=== PATIENT | male | born 1955 | race Caucasian/White ===

== ENCOUNTER 2018-07-20 13:11 | Emergency (ER) | payer OTHER ==
[~2018-07-20] VITALS: Ht 180.3 cm; Wt 72.6 kg
[2018-07-20 13:57] LABS: BASO # 0.1 10*3/uL (0.0-0.1); BASO % 0.8 % (0.0-1.0); EOS % 0.3 % (1.0-4.0); HEMATOCRIT 49.4 % (42.0-52.0); HEMOGLOBIN 17.4 g/dl (14.0-18.0); LYMPH # 0.9 10*3/uL (1.3-4.4); LYMPH % 7.4 % (27.0-41.0); MEAN CELL VOLUME 90.5 fl (80.0-94.0); MEAN CORPUSCULAR HGB 31.9 pg (27.0-31.0); MEAN CORPUSCULAR HGB CONC 35.2 g/dl (33.0-37.0); MEAN PLATELET VOLUME 12.6 fl (9.6-12.3); MONO # 0.8 10*3/uL (0.1-1.0); MONO % 6.6 % (3.0-9.0); NEUT % 84.5 % (47.0-73.0); PLATELET COUNT AUTOMATED 227 10*3/uL (130-400); RED BLOOD COUNT 5.46 10*6/uL (4.50-5.90); RED CELL DISTRI WIDTH 13.1 % (0-14.5); WHITE BLOOD COUNT 11.9 10*3/uL (4.8-10.8)
[2018-07-20 14:57] LABS: ALBUMIN 3.7 gm/dl (3.1-4.5); ALKALINE PHOSPHATASE 82 U/L (45-117); BUN 6 mg/dl (7-24); CHLORIDE 102 mmol/L (98-107); CREATININE 0.63 mg/dL (0.70-1.30); POTASSIUM 4.4 mmol/L (3.5-5.1); SGOT/AST 68 IU/L (3-35); SGPT/ALT 74 U/L (12-78); SODIUM 135 mmol/L (136-145); TOTAL PROTEIN 7.8 gm/dL (6.4-8.2)
[2018-07-20] MEDS ORDERED: CIPRO500 MG PO (15:54)
[2018-07-20] MEDS ORDERED: NORCO 5-325 TA1 EACH PO (15:54)
[2018-07-20] MEDS ORDERED: Motrin,Rufen800 MG PO (15:54)
== END 2018-07-20 16:04 | disposition home or self-care (01) ==
LOC: ED 13:11
PROVIDERS: Emergency Medicine
DX: N45.1 Epididymitis (principal)